=== PATIENT | female | born 1970 | race Caucasian/White ===

== ENCOUNTER 2021-05-23 11:34 | Emergency (ER) | payer MEDICAID, SELFPAY ==
[2021-05-23 11:52] VITALS: BP 143/88; PULSE 75; RESP 15; TEMP 36.5; O2SAT 98; BMI 33.2
--- NOTE | 2021-05-23 12:33 | XRR_ITS ---
PROCEDURE INFORMATION: Exam: XR Right Wrist Exam date and time: 05/23/2021 12:33 PM Age: 51 years old Clinical indication: Fall with blunt trauma. Right wrist injury. TECHNIQUE: Imaging protocol: XR Right wrist. Views: 3 or more views. COMPARISON: No relevant prior studies available. FINDINGS: Bones/joints: There is a mildly impacted fracture involving the distal radial metaphysis with dorsal angulation of the distal fracture fragment. There is a displaced fracture of the ulnar styloid. The scapholunate and lunotriquetral intervals are maintained. No chondrocalcinosis is seen. Mild degenerative changes at the radiocarpal and 1st carpometacarpal joints. Soft tissues: There is soft tissue swelling about the wrist. XR/XR wrist RT min 3V* [id number] IMPRESSION: 1. Mildly impacted fracture involving the distal radial metaphysis with dorsal angulation of the distal fracture fragment. 2. Displaced fracture of the ulnar styloid. 3. Soft tissue swelling about the wrist. 4. Mild degenerative changes at the radiocarpal and 1st carpometacarpal joints.
--- NOTE | 2021-05-23 12:55 | W.ED.EXTPRO ---
HPI - Extremity Problem General: Chief complaint: Extremity Injury, Upper Stated complaint: Hurt R hand cant move Time Seen by Provider: 05/23/21 12:06 History of Present Illness: Patient is a 51-year-old female comes to the ED with right wrist injury. Just prior to arrival patient slipped on a piece of ice outside and landed with her right arm extended out. Patient has pain and swelling in her right wrist. Any movement with wrist causes pain. Patient took a dose of Tylenol before coming to the ED. Associated symptoms: Deny chest pain, fever(s) or rash Review of Systems Const: Denies: fever(s), chills or fatigue Eyes: Denies: change in vision or eye discomfort ENMT: Denies: throat pain, odynophagia, nasal discharge or nasal congestion Card: Denies: chest pain, palpitations, edema, swelling of feet/ankles, dyspnea on exertion or orthopnea Resp: Denies: dyspnea, productive cough or non-productive cough GI: Denies: abdominal pain, nausea, vomiting, diarrhea, constipation or hematochezia : Denies: flank pain, dysuria or hematuria Musc: Reports: extremity pain (Right wrist) and extremity swelling (Right wrist); Denies: neck pain or back pain Skin/Breast: Denies: rash or new lesions Neuro: Denies: headache(s), numbness in extremities or weakness in extremities PFS ED PFSH: Medical History No pertinent family history Surgical History No pertinent past surgical history Physical Exam Const: COMMON NORMALS: no acute distress, patient oriented x3 and alert GENERAL APPEARANCE: cooperative HENMT: COMMON NORMALS: normocephalic HEAD & SCALP: normocephalic MOUTH: Normal oral and palatal mucosa present THROAT: posterior oropharynx normal and uvula midline Neck/C-Spine: COMMON NORMALS: supple GENERAL: Yes normal visual inspection Resp: COMMON NORMALS: normal respiratory effort, No retractions, No use of accessory muscles and clear to auscultation bilaterally AUSCULTATION: clear to auscultation bilaterally Cardio: COMMON NORMALS: regular rate, regular rhythm, S1 normal heart sound present, S2 normal heart sound present, No gallops present (Cardio), No clicks present (Cardio), No murmurs present (Cardio) and Peripheral pulses 2+ throughout RATE: regular rate RHYTHM: regular rhythm HEART SOUNDS: S1 normal heart sound present and S2 normal heart sound present PERIPHERAL PULSES: Peripheral pulses 2+ throughout GI: COMMON NORMALS: Normal to inspection, nondistended, normoactive bowel sounds present, Soft to palpation, non-tender and no masses PALPATION: Yes Soft to palpation : COMMON NORMALS: Yes no CVA tenderness BLADDER/KIDNEY EXAM: Yes no CVA tenderness Back/Pelvis: COMMON NORMALS: no CVA tenderness Extremity: RIGHT UPPER EXTREMITY: Yes wrist Right wrist: Yes inspection (Swelling noted. No deformity seen.), Yes palpation (Tenderness over radial aspect of wrist), Yes ROM (Limited due to pain) and Yes neurovascular exam (Intact) Neuro: COMMON NORMALS: patient oriented x3 and moves all extremities SENSORIUM/ORIENTATION: Yes alert Skin: GENERAL SKIN EXAM: dry skin Course Vital Signs: Vital signs: Vital Signs Temperature 97.7 F 05/23/21 11:52 Pulse Rate 63 05/23/21 14:06 Respiratory Rate 15 05/23/21 14:06 Blood Pressure 152/68 05/23/21 14:06 Pulse Oximetry 99 05/23/21 14:06 MDM - Extremity (Nontraumatic) Medical Decision Making Patient is a 51-year-old female comes to the ED with right wrist pain after fall. Patient's right wrist is swollen and tender to palpation. No visible deformity seen. Neurovascular tact. Right wrist x-ray mildly impacted fracture involving the distal radial metaphysis with some dorsal angulation of the distal fracture fragment. Fracture of ulnar styloid. Patient was put in a sugar tong splint and discharged home with a prescription for hydrocodone for pain. I placed an order with case management for patient to be referred to orthopedic for further management of wrist fracture. Return to ED precautions given. Patient understood and agreed with plan. Imaging Data Xray Ortho: Radiologist's impression: [address] [address] XRay Report Signed Patient: Lizzie Ackerman Unit #: [id number] : 1970 Age/Sex: 51 / F ADM Date: 05/23/21 Loc: ER Room/Bed: Attending Dr: Ordering Provider/Ordering MD: Kayla,Chencho PA Date of Service: 05/23/21 Procedure(s): XR wrist RT min 3V* [id number] Accession Number(s): [id number] Report Number: [id number] PROCEDURE INFORMATION: Exam: XR Right Wrist Exam date and time: 05/23/2021 12:33 PM Age: 51 years old Clinical indication: Fall with blunt trauma. Right wrist injury. TECHNIQUE: Imaging protocol: XR Right wrist. Views: 3 or more views. COMPARISON: No relevant prior studies available. FINDINGS: Bones/joints: There is a mildly impacted fracture involving the distal radial metaphysis with dorsal angulation of the distal fracture fragment. There is a displaced fracture of the ulnar styloid. The scapholunate and lunotriquetral intervals are maintained. No chondrocalcinosis is seen. Mild degenerative changes at the radiocarpal and 1st carpometacarpal joints. Soft tissues: There is soft tissue swelling about the wrist. XR/XR wrist RT min 3V* [id number] IMPRESSION: 1. Mildly impacted fracture involving the distal radial metaphysis with dorsal angulation of the distal fracture fragment. 2. Displaced fracture of the ulnar styloid. 3. Soft tissue swelling about the wrist. 4. Mild degenerative changes at the radiocarpal and 1st carpometacarpal joints. Dictated By: Rocky Sommers Signed By: Rocky Sommers Signed Date/Time: 05/23/21 1408 DD/ 1233 Discharge Plan Discharge Patient Disposition: Home Clinical Impression: Fracture of wrist Qualifiers: Encounter type: initial encounter Fracture type: closed Laterality: right Qualified Code(s): S62.101A - Fracture of unspecified carpal bone, right wrist, initial encounter for closed fracture Condition: Stable Discharge Orders: Discharge ED (Routine); Ordered 05/23/21 Ordered By: Chencho Garza Discharge Diet: Regular Discharge Activity: Limit activity as instructed Patient Instructions: Wrist Fracture in Adults (ED), Opioid Safety Activity Restrictions/Additional Instructions: Follow-up with medical provider as directed. Case management should be contacting you in the next several days to set up an appointment with orthopedic for further management of wrist fracture. take medications as prescribed. Keep splint on and dry and limit activity with right arm. Return to the ER or your medical provider if condition worsens. Please read and understand discharge instructions. Thank you for choosing [facility] for your healthcare needs today. Please realize this is an emergency room and that we are providing you with a medical screening exam and this may not be complete and all inclusive of all the testing and or work up that you may need to determine your ailment or severity of your illness. It is very important that you follow up as instructed or that you return to the Emergency Department should you have concerns or if your condition changes or worsens in any way. Coding Level of Care Code ED Quality Assurance Technician for [facility] Exam Comprehensive
[2021-05-23 14:06] VITALS: BP 152/68; PULSE 63; RESP 15; O2SAT 99
--- NOTE | 2021-05-24 09:44 | DCPLANNER ---
Addendum entered by Aurora Gomes 05/28/21 13:06: Patient had a follow up appointment scheduled for 05.26.21 with ortho - patient did attend appointment. Original Note: manager marketing sales had message to schedule a follow up appointment for patient with ortho. manager marketing sales called the ortho clinic, spoke with Florinda, gave clinic patients information. manager marketing sales was told that patients information would be printed and reviewed. Clinic will call patient with appointment information.
== END 2021-05-23 14:07 | disposition home or self-care (01) ==
PROVIDERS: Emergency Provider Physician Assistant
DX: S52.591A Other fractures of lower end of right radius, initial encounter for closed fracture (principal); S52.611A Displaced fracture of right ulna styloid process, initial encounter for closed fracture; W00.0XXA Fall on same level due to ice and snow, initial encounter
CPT/HCPCS: 29125; 73110; 99283

== ENCOUNTER 2021-05-26 14:36 | Outpatient (CLI) | payer MEDICAID, SELFPAY | END 2021-05-26 14:37 | disposition home or self-care (01) | LOC: SPT 14:38 | PROVIDERS: Visit Provider Orthopaedic Surgery | DX: Z46.89 Encounter for fitting and adjustment of other specified devices (principal); S52.592D Other fractures of lower end of left radius, subsequent encounter for closed fracture with routine healing; X58.XXXD Exposure to other specified factors, subsequent encounter | CPT/HCPCS: 87635; 97760; L3908 ==

== ENCOUNTER 2021-05-27 07:52 | Day surgery (SDC) | payer MEDICAID, SELFPAY ==
[2021-05-26 15:18] VITALS: BMI 33.2
[2021-05-27] VITALS (15 sets, daily range): BP systolic 143–177; BP diastolic 69–108; PULSE 76–98; RESP 14–22; TEMP 36.2–36.6; O2SAT 94–100
--- NOTE | 2021-05-27 | XR_ITS ---
WS: [id number] Right wrist, C-arm fluoroscopy, 05/27/2021 Clinical Data: distal radius fracture Comparison: Right wrist, 05/23/2021. Findings: Dr. Sagastume performed an internal fixation of the distal right radial fracture. XR/XR wrist RT 2V 19946 Impression: Internal fixation of distal right radial fracture.
--- NOTE | 2021-05-27 | SCC_ITS ---
Procedure done: Open reduction internal fixation right distal radius 30.1 seconds of fluoroscopic guidance, for a cumulative dose of 0.54 mGy, was provided to Dr. Sagastume by the radiology department. C-arm images of the RIGHT wrist were saved for the patient's permanent record. [facility]ITALGay[facility]
[2021-05-27] MEDS: sodium chloride 0.9% 1,000 ML 30 ML IV (08:03)
--- NOTE | 2021-05-27 08:19 | W.PM.OPSUD ---
Surgery/Procedure H&P Update DATE OF PROCEDURE: May 27, 2021 DATE H&P PERFORMED: 05/26/21 H&P UPDATE INFORMATION: I have reviewed H&P completed within last 30 days PREOP DIAGNOSIS: Fracture Right distal radius PLANNED PROCEDURE: Operation Date: 05/27/21 08:50 Proposed [place] [address]/s52.509A(Right) - Jordi Sagastume MD
--- NOTE | 2021-05-27 09:33 | ANES.PREANE2 ---
Pre-Anesthetic Assessment Height/Weight: Height 1.52 m Weight 77.111 kg Temp Pulse Resp BP Pulse Ox 97.6 F 78 18 166/107 97 05/27/21 07:59 05/27/21 07:59 05/27/21 07:59 05/27/21 07:59 05/27/21 07:59 Preop Diagnosis: Fracture Right distal radius Operation Date: 05/27/21 08:50 Proposed Procedures [place] [address]/s52.509A(Right) - Jordi Sagastume MD Familial anesthetic complications: None Was Beta Jouse taken within 24 hours: N/A Was Clonidine taken within 24 hours: N/A Last intake: Intake Last Liquid Date 05/26/21 Last Liquid Time 21:00 Last Solid Date 05/26/21 Last Solid Time 21:00 Social No alcohol and No tobacco Exam alert, oriented x 3, clear to auscultation bilaterally and regular rate & rhythm Airway Mallampati: Class II Dentition: full Anesthetic Plan ASA status: 2 Anesthesia: General and Regional (specify below) Other Pertinent Information Patient coded d/t preeclampsia - emergency c section Medications/Allergies Home Medications Medication Instructions Recorded Confirmed Last Taken Type Cock up splint #1 ea 05/26/21 05/26/21 Unknown Rx hydrocodone 5 mg-acetaminophen 325 1 tab PO Q4H #30 tab 05/27/21 Unknown Rx mg tablet Allergies Allergy/AdvReac Type Severity Reaction Status Date / Time Sulfa (Sulfonamide Allergy ALGY-Hives Verified 05/27/21 08:02 Antibiotics) Current Medications Generic Name Dose Route Start Last Admin Trade Name Freq PRN Reason Stop Dose Admin Sodium Chloride 1,000 mls @ 30 mls/hr 05/27/21 07:45 05/27/21 08:03 Sodium Chloride 0.9% IV 05/28/21 07:44 30 mls/hr .Q24H PAVAN Administration PFSH Anesthesia Medical History No pertinent family history Surgical History No pertinent past surgical history Social History Smoking and tobacco status: never smoked Data Anesthesia Cardiac Studies: No Data to Display
--- NOTE | 2021-05-27 09:35 | PM.OP ---
Operative Report Date of procedure: May 27, 2021 Pre-op diagnosis: Preop Diagnosis Fracture Right distal radius Post-op diagnosis: same Post-op diagnosis: Extra-articular fracture right distal radius (2-part) Procedure done: Open reduction internal fixation right distal radius Implants: [place] short narrow Variax plate Surgeon: Jordi Sagastume Anesthesia: General Estimated blood loss (mL): 10 Tourniquet time (min): 29 Findings: The patient had a angulated displaced extra-articular fracture of the right distal right Disposition: PACU Procedure: Initial attempts were made at closed reduction however a satisfactory stable reduction could not be obtained. A decision was made to proceed with open reduction internal fixation.A 5 cm long incision was made along over the flexor carpi radialis tendon. Dissection was carried down through the tendon sheath. Dissection was carried down bluntly to the pronator quadratus. The pronator quadratus was elevated off of the distal radius leaving a cuff for later repair. Closed reduction was accomplished of the distal radius. A [place] Variax short narrow plate was applied. It was fixed distally with 5 locking screws and proximally with 3 bicortical screws. Intraoperative imaging showed excellent position of the hardware. The wound was irrigated with saline. The pronator quadratus was reapproximated with 2-0 Vicryl. Subcutaneous tissues were closed with 2-0 Vicryl. The skin was closed with skin judy. Sterile dressings and a Velcro splint were applied. The patient was taken to outpatient surgery in stable condition.
--- NOTE | 2021-05-27 09:50 | P.PCN_ITS ---
PACU note Narrative: VSS, Good respiratory effort, report to TEST LEAD APPLICATION TESTING Exam: awake
--- NOTE | 2021-05-27 09:50 | PM.PACU ---
PACU note Narrative: VSS, Good respiratory effort, report to INTERNATIONAL SALES MANAGER Exam: awake
[2021-05-27] MEDS: fentaNYL 50 mcg/mL INJ 2mL IVP ×2 (09:59→10:08)
--- NOTE | 2021-05-27 10:25 | SUR.PHASEI ---
1019- time out completed and Anesthesia performed a nerve block to patient's right upper arm. VS stable, patient tolerated well
--- NOTE | 2021-05-27 10:26 | ANES.PROC ---
Anesthesia Procedures Procedure/Date: 05/27/21 Nerve Block ^: Nerve Block 1: Main Anesthesia: general anesthesia Time Out Performed: Yes Consent: requested by attending/covering physician, from patient, risks and benefits reviewed and patient agrees to proceed Nerve block location: axillary (R + musculocutaneous) Anesthesia monitors applied: pulse oximetry, EKG, BP cuff and oxygen Nerve block position: supine Anesthetic Used: ropivicaine 0.5% (30) and with decadron (4 mg) Ultrasound used to: recognize landmarks and visualize and ID brachial plexus Nerve Stimulator Used?: No Interscalene/Femoral BLK: 4 stimuplex 21 g needle used for position and inplane approach, visualize local anesthetic spread and no vascular puncture identified Injection: neg aspiration of heme Patient Tolerated Procedure: well and no complications Complications: none
[2021-05-27] MEDS: HYDROcodone-acetaminophen 5-325 mg Tablet 1 TAB PO (10:48)
--- NOTE | 2021-05-27 19:22 | ANE.PACU2 ---
Inpatient post-anesthesia follow up: Airway intact: Yes Vital signs: Temperature 97.5 F Pulse Rate 78 Respiratory Rate 18 Blood Pressure 168/108 Pulse Oximetry 99 Oxygen Delivery Me thod Room Air Oxygen Flow Rate 8 Fraction of Inspir ed Oxygen Hydration adequate: Yes Nausea and vomiting: No Pain level: 5 Mental status: Baseline
== END 2021-05-27 11:24 | disposition home or self-care (01) ==
PROVIDERS: Visit Provider Orthopaedic Surgery
PROC: (CPT 25607; principal; 2021-05-27 08:40)
DX: S52.551A Other extraarticular fracture of lower end of right radius, initial encounter for closed fracture (principal); W00.0XXA Fall on same level due to ice and snow, initial encounter
CPT/HCPCS: 25607; 64417; 73100; 76000; 76942; C1713; J0330; J0690; J1100; J1200; J1580; J2250; J2370; J2405; J2704; J2795; J3010; J3490; J7030

== ENCOUNTER 2021-07-09 09:29 | Outpatient (CLI) | payer MEDICAID, SELFPAY ==
--- NOTE | 2021-07-09 09:42 | XR_ITS ---
WS: [id number] Right wrist, 3 views, 07/09/2021 Clinical Data: fracture Comparison: Right wrist, 05/23/2021. Findings: The distal right radial fracture has been repaired with a ventral plate and multiple orthopedic screw s. The ulnar styloid fracture is still visible. The carpal bones are unchanged. XR/XR wrist RT min 3V* 12340 Impression: Internal fixation of distal right radial fracture.
== END 2021-07-09 09:30 | disposition home or self-care (01) ==
LOC: RAD 09:32
PROVIDERS: Visit Provider Orthopaedic Surgery
DX: S52.501A Unspecified fracture of the lower end of right radius, initial encounter for closed fracture (principal); X58.XXXA Exposure to other specified factors, initial encounter
CPT/HCPCS: 73110

== ENCOUNTER → 2022-11-23 14:35 | Outpatient (BNVA) | payer MEDICAID, SELFPAY | PROVIDERS: Visit Provider Specialist | DX: Z98.890 Other specified postprocedural states; S62.101D Fracture of unspecified carpal bone, right wrist, subsequent encounter for fracture with routine healing; X58.XXXD Exposure to other specified factors, subsequent encounter | CPT/HCPCS: 73110 ==

== ENCOUNTER 2022-11-23 16:05 | Outpatient (CLI) | payer MEDICAID, SELFPAY | END 2022-11-23 16:06 | disposition home or self-care (01) | LOC: SPT 16:06 | PROVIDERS: Visit Provider Specialist | DX: Z46.89 Encounter for fitting and adjustment of other specified devices (principal); M25.539 Pain in unspecified wrist; Z3A.00 Weeks of gestation of pregnancy not specified | CPT/HCPCS: L3908 ==